=== PATIENT | male | born 1970 | race Caucasian/White ===

== ENCOUNTER → 2019-10-21 10:45 | Outpatient (BNVA) | payer MEDICAID, SELFPAY | PROVIDERS: Family Provider Nurse Practitioner Family; Visit Provider Emergency Medicine | DX: R68.89 Other general symptoms and signs (principal); J40 Bronchitis, not specified as acute or chronic; R19.7 Diarrhea, unspecified; Z79.4 Long term (current) use of insulin; E11.9 Type 2 diabetes mellitus without complications | CPT/HCPCS: 87400; 87635 ==

== ENCOUNTER → 2020-02-10 09:36 | Outpatient (BNVA) | payer MEDICAID, SELFPAY | PROVIDERS: Family Provider Nurse Practitioner Family; Visit Provider Psychiatry & Neurology Psychiatry | DX: F41.1 Generalized anxiety disorder (principal); F43.10 Post-traumatic stress disorder, unspecified; F32.9 Major depressive disorder, single episode, unspecified | CPT/HCPCS: 90792 ==

== ENCOUNTER → 2020-06-07 18:00 | Outpatient (BNVA) | payer MEDICAID, SELFPAY | PROVIDERS: Family Provider Nurse Practitioner Family; Visit Provider Family Medicine | DX: E11.9 Type 2 diabetes mellitus without complications (principal); Z79.4 Long term (current) use of insulin; E05.90 Thyrotoxicosis, unspecified without thyrotoxic crisis or storm; R00.0 Tachycardia, unspecified; I10 Essential (primary) hypertension; R56.9 Unspecified convulsions; G62.9 Polyneuropathy, unspecified; M51.36 Other intervertebral disc degeneration, lumbar region | CPT/HCPCS: 80053; 80061; 83036; 84439; 84443; 84481 ==

== ENCOUNTER → 2020-08-11 10:07 | Outpatient (BNVA) | payer MEDICAID, SELFPAY | PROVIDERS: Family Provider Nurse Practitioner Family; Referring Provider Family Medicine; Visit Provider Internal Medicine | DX: E04.2 Nontoxic multinodular goiter (principal); E05.00 Thyrotoxicosis with diffuse goiter without thyrotoxic crisis or storm; F41.1 Generalized anxiety disorder; Z92.3 Personal history of irradiation | CPT/HCPCS: 99204 ==

== ENCOUNTER 2020-09-02 12:16 | Outpatient (CLI) | payer MEDICAID, SELFPAY ==
[2020-09-02 13:04] LABS: Free T4 Free Thyroxine 1.66 ng/dL (0.82-1.77); Thyroid Stimulating Hormone 0.01 uIU/mL (0.27-4.20)
--- NOTE | 2020-09-02 14:30 | US_ITS ---
WS: [id number] ULTRASOUND THYROID TECHNIQUE: Ultrasound of the thyroid. CLINICAL INFORMATION: multiple thyroid nodules, dysphagia COMPARISON: None. FINDINGS: Thyroid: Right and left thyroid lobes are normal in size and echotexture. Multiple bilateral thyroid nodules. Largest solid nodule in the right thyroid measuring 1.2 x 0.9 x 0.8 cm Prominent nodule along the left thyroid isthmus measuring 1.1 x 1.3 cm. Solid heterogeneous nodule left thyroid measuring 3.6 x 2.3 x 3.1 cm Additional solid heterogeneous thyroid nodule left inferior thyroid measuring 2.8 x 3.5 x 3.2 CM. Right thyroid lobe: 5.0 cm x 1.6 cm x 1.5 cm Left thyroid lobe: 8.2 cm x 3.4 cm x 3.9 cm. Isthmus: 0.5 mm. Cervical lymphadenopathy: None. US/US thyroid [id number] IMPRESSION: 1. Multiple heterogeneous solid bilateral thyroid 2. Largest nodules in the superior left thyroid measuring 3.6 x 2.3 x 3.1 cm a nd inferior left thyroid measuring 2.8 x 3.5 x 3.2 CM. Recommend ultrasound-jadiel ded FNA of these 2 nodules if not previously performed. 3. Additional notable nodule along the left thyroid isthmus measuring 1.1 x 1. 3 CM.
[2020-09-03 09:32] LABS: T3 Total 251 ng/dL (76-181)
[2020-09-08 22:08] LABS: TSH Receptor Binding Antibody <1.00 IU/L (< OR = 2.00)
== END 2020-09-02 12:17 | disposition home or self-care (01) ==
LOC: US 12:16
PROVIDERS: PCP Family Medicine; Visit Provider Internal Medicine
DX: E05.90 Thyrotoxicosis, unspecified without thyrotoxic crisis or storm (principal); E04.2 Nontoxic multinodular goiter; R13.10 Dysphagia, unspecified
CPT/HCPCS: 36415; 76536; 83516; 84439; 84443; 84480

== ENCOUNTER → 2020-10-13 08:45 | Outpatient (BNVA) | payer MEDICAID, SELFPAY | PROVIDERS: PCP Family Medicine; Visit Provider Internal Medicine | DX: E04.2 Nontoxic multinodular goiter (principal); E05.00 Thyrotoxicosis with diffuse goiter without thyrotoxic crisis or storm; F41.1 Generalized anxiety disorder; Z92.3 Personal history of irradiation | CPT/HCPCS: 99214 ==

== ENCOUNTER 2024-03-26 14:32 | Outpatient (CLI) | payer MEDICAID, SELFPAY ==
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
== END 2024-03-26 14:33 | disposition home or self-care (01) ==
LOC: RAD 14:34
PROVIDERS: PCP Family Medicine; Visit Provider Anesthesiology Pain Medicine
DX: M25.551 Pain in right hip (principal); V89.2XXA Person injured in unspecified motor-vehicle accident, traffic, initial encounter
CPT/HCPCS: 73502